=== PATIENT | male | born 2000 | race Hispanic/Latino ===

== ENCOUNTER 2018-04-08 00:53 | Observation (INO) | payer OTHER, SELFPAY ==
[2018-04-08 01:23] LABS: Bilirubin Negative (Negative); Blood, Urine Negative (Negative); Clarity CLEAR (Clear); Glucose, Urine (Dipstick) Negative (Negative); Leukocyte Negative (Negative); Nitrite Negative (Negative); Protein, Urine (Dipstick) Negative (Neg-Trace); Specific Gravity, Urine 1.023 (1.002-1.036); pH, Urine 8.5 (5.0-9.0)
[2018-04-08] MEDS ORDERED: Ketorolac Tromethamine 30 MG/ML VIAL ONE ×2 (01:27→13:02)
[2018-04-08] MEDS ORDERED: Ondansetron ODT 4 MG TAB ONE (01:33)
[2018-04-08 01:36] LABS: Band 3 % (5-11); Hemoglobin 16.5 g/dL (14.0-18.0); Lymphocytes 12 % (28-48); MDiff Complete? YES; Mean Corpuscular HGB CONC 33.5 g/dL (32.0-36.0); Mean Corpuscular Hemoglobin 30.4 pg (25.0-35.0); Mean Corpuscular Volume 90.7 fL (78.0-98.0); Mean Platelet Volume 8.8 fL (7.4-10.4); Monocytes 7 % (0-4); Neutrophil 78 % (31-61); PLT Morphology Comment Appears Adequate; Platelet Count 203 thou/uL (130-400); RBC Distribution Width 11.5 % (11.5-14.5); Red Blood Cell (RBC) Count 5.43 mill/uL (4.00-5.20); White Blood Cell (WBC) Count 20.2 thou/uL (4.8-10.8)
[2018-04-08 01:43] LABS: ALT (SGPT) 18 U/L (8-55); AST (SGOT) 27 U/L (10-45); Albumin 5.5 g/dL (3.5-5.0); Alkaline Phosphatase 92 U/L (Less than 750); Anion Gap 14 mmol/L (10-20); BUN (Urea Nitrogen) 17 mg/dL (8.4-21.0); Bilirubin, Total 1.1 mg/dL (0.2-1.2); Calc. Creatinine Clearance 0 mL/min (70-130); Calcium 9.9 mg/dL (7.8-10.44); Carbon Dioxide 26 mmol/L (22-29); Chloride 103 mmol/L (98-107); Estimated GFR-MDRD Greater than 90; Globulin 3.1 g/dL (2.4-3.5); Glucose 98 mg/dL (70-105); Lipase 15 U/L (8-78); Potassium 3.4 mmol/L (3.5-5.1); Protein, Total 8.6 g/dL (6.0-8.3); Sodium 140 mmol/L (136-145)
[2018-04-08] MEDS ORDERED: Piperacillin/Tazobactam 3.375 GM VIAL ONE ×2 (03:37→12:31)
[2018-04-08 04:41] VITALS: BMI 29.7
[2018-04-08] MEDS: Lactated Ringer's 1,000 ML IV SCH ×2 (05:00→12:56)
--- NOTE | 2018-04-08 08:00 | CT ---
PRELIMINARY REPORT/[facility]/EMERGENTY AFTER-HOURS PROCEDURE Addendum created by Luis Márquez MD on 04/08/2018 3:23 AM Central Time ([place] & [place]) Findings disc ussed with TIMMY WADE MD at time of interpretation. Initial Report created on 04/08/2018 3:19 A M Central Time ([place] & [place]) CT Abdomen and Pelvis With Intravenous Contrast EXAM DATE/TIME: 04/08/2018 3:06 AM CLINICAL HISTORY: 17 years old, male; Pain; Abdominal pain; Localized; Right lower quadrant (rlq); Patient HX: Er 6; 17 yo m w/o significant pmh presents for acute onset lower abdominal pain that started approx. 2 hrsw p ta. Describes the pain as sharp and stabbing starting periumbilically and migrating to rlq. Reports r lq and llq abd pain and some associated bloating. Associated nausea, denies vomiting, diarrhea, const ipation. TECHNIQUE: Axial computed tomography images of the abdomen and pelvis with intravenous contrast. Coronal reformatted images were created and reviewed. COMPARISON: No relevant prior studies available. FINDINGS: Lower thorax: No acute findings. ABDOMEN: Liver: Normal. No mass. Gallbladder and bile ducts: Normal. No calcified stones. No ductal dilation. Pancreas: Normal. No ductal dilation. Spleen: Normal. No splenomegaly. Adrenals: Normal. No mass. Kidneys and ureters: Normal. No hydronephrosis. Stomach and bowel: Normal. No obstruction. No mucosal thickening. Appendix: The appendix is fluid-filled and dilated to 1.1 cm in caliber with obstructing appendicolit h at its orifice and mild periappendiceal inflammation, consistent with acute appendicitis. PELVIS: Bladder: Unremarkable as visualized. Reproductive: Unremarkable as visualized. ABDOMEN and PELVIS: Intraperitoneal space: No pneumoperitoneum or abscess. Trace free fluid in the dependent pelvis. Bones/joints: No acute fracture. No dislocation. Soft tissues: Unremarkable. Vasculature: Normal. No abdominal aortic aneurysm. Lymph nodes: Normal. No enlarged lymph nodes. IMPRESSION: Acute appendicitis. Thank you for allowing us to participate in the care of your patient. Dictated and Authenticated by: Luis Márquez MD 04/08/2018 3:19 AM Central Time ([place] & [place]) FINAL REPORT CT ABDOMEN AND PELVIS WITH IV AND ORAL CONTRAST: I agree with the preliminary report given by Dr. Luis Márquez of [facility]. POS: [facility]
[2018-04-08] MEDS: Piperacillin/Tazobactam 3.375 GM in Sodium Chloride 0.9% 100 ML IVPB SCH ×2 (08:58→16:17)
--- NOTE | 2018-04-08 11:07 | HP ---
CHIEF COMPLAINT: Right lower quadrant abdominal pain. HISTORY OF PRESENT ILLNESS: The patient is an otherwise healthy 17-year-old male from [place]. He is a ttending college at [employer]. He developed onset of lower abdominal pain yesterday eveni ng about 8 o'clock. He presented to the emergency room late last night for evaluation. He was nause ated, but did not vomit. Examination revealed leukocytosis, white blood cell count of 20,000. CT sc an was consistent with acute appendicitis. He was given intravenous antibiotics and admitted to [facility]. PAST MEDICAL HISTORY: Negative. PAST SURGICAL HISTORY: Negative. CURRENT MEDICATIONS: Naproxen for ankle pain. ALLERGIES: No known drug allergies. PERSONAL/SOCIAL HISTORY: He is from [place]. I spoke with his father on the phone. He does not smoke or drink alcohol. 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 REVIEW OF SYSTEMS: Otherwise, unremarkable. FAMILY HISTORY: Noncontributory. PHYSICAL EXAMINATION: VITAL SIGNS: He is afebrile, pulse is 86, blood pressure 121/71. GENERAL: Well-developed, well-nourished, pleasant male resting in bed in no acute dis tress. He is alert and oriented x3. He was asleep when I arrived. HEENT: Unremarkable. NECK: Supple, without mass or tenderness. LUNGS: Clear to auscultation throughout. CARDIAC: Regular rate and rhythm without murmur. ABDOMEN: Soft with obvious tenderness and guarding in the right lower quadrant. EXTREMITIES: Unremarkable. ASSESSMENT: Patient with acute appendicitis. PLAN: Laparoscopic appendectomy. I have discussed the operation in detail with the patient as well as potential risks. He understands and agrees to do surgery at this time.
[2018-04-08] MEDS ORDERED: Fentanyl 100 MCG/2 ML VIAL ONE ×2 (11:50→12:05)
[2018-04-08] MEDS ORDERED: Bupivacaine/Epinephrine 0.25% 30 ML VIAL ONE (11:54)
[2018-04-08] MEDS ORDERED: Piperacillin/Tazobactam 3.375 GM in Sodium Chloride 0.9% 100 ML IVPB SCH (12:00)
[2018-04-08] MEDS ORDERED: ISOVUE-370 76%-LOCM 1 ML ONE (12:28)
[2018-04-08] MEDS ORDERED: Iopamidol 370 76% 50 ML VIAL FS ONE (12:28)
[2018-04-08] MEDS ORDERED: PROPOFOL 200 MG/20 ML VIAL ONE (13:02)
[2018-04-08] MEDS ORDERED: Succinylcholine Chloride 20 MG/ML 10 ml SYRINGE FS ONE (13:02)
[2018-04-08] MEDS ORDERED: Dexamethasone 20 MG/5 ML VIAL ONE (13:02)
[2018-04-08] MEDS ORDERED: Promethazine HCl 25 MG/ML VIAL SLOW IVP PRN (13:19)
[2018-04-08] MEDS ORDERED: Promethazine HCl 25 MG/ML VIAL IM PRN (13:19)
[2018-04-08] MEDS ORDERED: Ondansetron HCl/PF 4 MG/2 ML Vial IVP PRN (13:19)
[2018-04-08 14:06] VITALS: BP 103/67; TEMP 99
--- NOTE | 2018-04-11 08:46 | OP ---
DATE OF PROCEDURE: 04/08/2018: PREOPERATIVE DIAGNOSIS: Acute appendicitis. POSTOPERATIVE DIAGNOSIS: Acute appendicitis. OPERATION PERFORMED: Laparoscopic appendectomy. SURGEON: Venancio Garcia M.D. ANESTHESIA: General endotracheal. INDICATIONS: The patient is a 17-year-old male. He presents with findings consistent with acute appendicitis, taken to the operating room at this time for laparoscopic appendectomy. DESCRIPTION OF OPERATION: Informed consent was obtained. The patient taken to the operating room wh ere general endotracheal anesthesia obtained with the patient in the supine position. After stripped trimmed of hair, prepped with ChloraPrep, and draped in sterile fashion, local anesthetic was infilt rated using 0.25% Marcaine with epinephrine. An infraumbilical incision was created through which a 5 mm trocar port was passed. Pneumoperitoneum established using carbon dioxide up to a pressure of 1 5 mmHg. Two additional trocars were placed under direct vision, a 5 mm port in the left lower quadra nt and a 12 mm port in the suprapubic location. Attention was turned to the right lower quadrant where obviously inflamed appendix was identified. T his was clear cut acute appendicitis. Mesoappendix was grasped and taken down using electrocautery, maintaining meticulous hemostasis. Base of appendix was skeletonized and found to be without involve ment in the acute inflammatory process. The appendix was divided at its base between two interrupted PDS Endoloop ties. The appendiceal stump was cauterized. The appendix was placed in a specimen ret rieval sac and removed through the suprapubic port site. Fascia was closed with 0 Vicryl suture usin g a GraNee needle. Right lower quadrant and pelvis were thoroughly irrigated and all irrigant was as pirated. All ports and instruments removed under direct vision. Pneumoperitoneum was carefully evac uated. 0.25% Marcaine with epinephrine was infiltrated at each port site. Skin edges approximated w ith 4-0 Monocryl subcuticular suture. Dermabond was placed externally. There were no complications. Blood loss was negligible, and the patient was taken to recovery room in stable condition.
== END 2018-04-08 18:23 | disposition home or self-care (01) ==
LOC: ERS 00:53 → SURG A 04:25
PROVIDERS: ADMIT Specialist; ATTEND Specialist
PROC: 0DTJ4ZZ Resection of Appendix, Percutaneous Endoscopic Approach (ICD-10-PCS; principal; 2018-04-08)
DX: K35.80 Unspecified acute appendicitis (principal); F17.290 Nicotine dependence, other tobacco product, uncomplicated
CPT/HCPCS: 74177; 80053; 81003; 83690; 85025; 88304; 96365; 96366; 96375; G0378; J1100; J1885; J2543; J2704; J3010; J7050; Q0162